=== PATIENT | female | born 1960 | race Caucasian/White ===

== ENCOUNTER → 2016-12-01 | Outpatient (CLI) | payer BC, OTHER ==
--- NOTE | 2016-12-01 14:03 | RAD ---
DATE: 12/18/2016 EXAM: DIGITAL DIAGNOSTIC BILATERAL HISTORY: Thickening involving the lower outer quadrants of both breasts. COMPARISON: 12/10/2015 This study was interpreted with the benefit of Computerized Aided Detection (CAD). FINDINGS: Digital MLO and CC mammograms of both breasts were obtained. Comparison study is dated 12/10/2015. The breast parenchyma is heterogeneously dense which can obscure a lesion on mammography (breast density code C). No spiculated mass is seen. No malignant appearing calcification or area of architectural distortion is noted. Since the previous examination there has been no significant interval change. IMPRESSION: BI-RADS Category 1, negative. There is no mammographic evidence of malignancy. Routine yearly screening mammography is recommended for follow-up. BI-RADS CATEGORY: 1 NEGATIVE RECOMMENDED FOLLOW-UP: 12M 12 MONTH FOLLOW-UP PQRS compliance statement: Patient information was entered into a reminder system with a target due date 12/01/2017 for the next mammogram. Mammography is a sensitive method for finding small breast cancers, but it does not detect them all and is not a substitute for careful clinical examination. A negative mammogram does not negate a clinically suspicious finding and should not result in delay in biopsying a clinically suspicious abnormality. "Our facility is accredited by the [employer] Mammography [employer]."
--- NOTE | 2016-12-01 14:47 | RAD ---
EXAM: Renal/retroperitonal ultrasound HISTORY: Right flank pain. COMPARISON: None. FINDINGS: Ultrasound of the kidneys, bladder and retroperitoneum was performed. The right kidney measures 10.6 cm. Cortical thickness and echogenicity are preserved. There is no hydronephrosis. The left kidney measures 10.5 cm. Cortical thickness and echogenicity are preserved. There is no hydronephrosis. The bladder is decompressed but there appears to be diffuse wall thickening. IMPRESSION: 1. Unremarkable examination of the kidneys. No hydronephrosis. 2. Diffuse bladder wall thickening indicates chronic outlet obstruction or inflammation. Correlate with urinalysis.
== END | disposition home or self-care (01) ==
LOC: MAMMO 13:08
PROVIDERS: ATTEND Nurse Practitioner Occupational Health
DX: R92.8 Other abnormal and inconclusive findings on diagnostic imaging of breast (principal); R10.9 Unspecified abdominal pain
CPT/HCPCS: 76770; G0204; 77066